=== PATIENT | female | born 1990 | race African-American/Black ===

== ENCOUNTER 2021-03-26 19:35 | Emergency (ER) | payer OTHER ==
[~2021-03-26] VITALS: Ht 172.7 cm; Wt 86.2 kg
[2021-03-27] MEDS ORDERED: PEPCID40 MG PO (02:17)
[2021-03-27] MEDS ORDERED: ZOFRAN8 MG PO (02:18)
== END 2021-03-27 03:27 | disposition home or self-care (01) ==
LOC: ER 19:35 → CPU-OBS 19:56 → ER 19:56
DX: R41.82 Altered mental status, unspecified (principal); R53.83 Other fatigue; F10.229 Alcohol dependence with intoxication, unspecified; Y90.9 Presence of alcohol in blood, level not specified; E87.6 Hypokalemia